=== PATIENT | female | born 1965 ===

== ENCOUNTER 2017-05-15 06:53 | Emergency (ER) | payer BC, OTHER ==
[2017-05-15 06:57] VITALS: TEMP 97.5
--- NOTE | 2017-05-15 07:04 | EDPHY ---
HPI/HX/ROS/PE/MDM Narrative: CHIEF COMPLAINT: Right lower back pain HPI: The patient is a 51 y/o female complaining of sharp right lower back pain, onset Saturday (3 days ago). The pain started on Saturday, but was mild and primarily in her abdomen. The pain then became more achy on Saturday. She saw her doctor on Saturday, 1 day ago, and they had no acute findings for her pain. They recommended she have blood work and abdominal imaging. The pain has since migrated towards her right low back. Denies fever, chills, diarrhea, constipation, history of similar symptoms, history of surgery or other pertinent symptoms. REVIEW OF SYSTEMS: Aside from elements discussed in the HPI, a comprehensive 10-point review of systems was reviewed and is negative. PMH: Denies SOCIAL HISTORY: Friend at bedside, lives in [place], works for [employer] PHYSICAL EXAM: General:Patient is alert, in no acute distress. ENT:Eyes are normal to inspection. ENT inspection normal. Neck: Normal inspection. Full range of motion. Respiratory:No respiratory distress. Breath sounds normal bilaterally. Cardiovascular: Regular rate and rhythm. Strong peripheral pulses. Normal cap refill. Abdomen:The abdomen is nontender to palpation. There are no peritoneal signs. There are normal bowel sounds. Back: Right-sided CVA tenderness to palpation. Normal to inspection. Skin: Normal color. No rash. Warm and dry. Extremities: Normal appearance. Full range of motion. Neuro: Oriented x3. Normal motor function. Normal sensory function. Portions of this note were transcribed by an ED scribe. I personally performed the history, physical exam, and medical decision making; and confirm the accuracy of the information in the transcribed note. ED Course: The patient is a 51 y/o female who presents with right-sided CVA tenderness, onset 3 days ago. The pain began in her right abdomen and has migrated to her right back. The pain has also increased in intensity since it began. 0730: Spoke with Dr. Cooper, radiologist, he reports the abdominopelvic CT is negative for acute findings. 0740: The patients nurse reports that she is still in significant pain after 15mg IV Toradol. 0.5mg IV Dilaudid administered. 0930: Spoke with Dr. Peter, radiologist, he reports the abdominal and pelvic/renal ultrasounds are normal. 1002: Reassessed patient and discussed imaging findings. I offered to admit her , but she refused and would like to go home. Return precautions provided; patient is comfortable with this plan. MDM: This patient presents with abdominal and flank pain, but surprisingly, her workup in the ED is normal. We performed an extensive series of tests in the ED , including CTAP, US of abdomen and pelvis, as well as negative labs and urinalysis. On re-evaluation, patient still has mild pain but feels better. Her vitals are normal. I had a discussion with her regarding options, and patient chooses to decline further testing here in the ED or admission to the hospital. We discussed strict return precautions. I see no signs of bowel obstruction, bowel perforation, appendicitis, kidney stone or diverticulitis. - Data Points Imaging Results: Imaging Impressions Abdomen/Pelvis CT 05/15/17 07:10 Impression: 1. Negative for nephrolithiasis or obstructive uropathy. 2. See above report for additional findings. The study was performed as an emergency on-call case and discussed by telephone with Dr. Quiroz at 0 735 hours. The final interpretation is concordant with the original communication. Attention: This CT examination is specifically designed to evaluate patients who are clinically suspected of having acute obstructive uropathy. This examination does not use radiographic contrast, and as such, provides only a limited evaluation of the abdomen, pelvis and retroperitoneum. If there is further clinical suspicion for pathological conditions other than obstructive uropathy, a complete CT evaluation of the abdomen and pelvis utilizing intravenous, oral, and rectal contrast should be considered. Abdomen Ultrasound 05/15/17 07:52 Impression: Normal abdominal ultrasound. Findings discussed with Kalyan Quiroz MD 05/15/2017 at 9:31. Pelvic/Renal Ultrasound 05/15/17 07:52 Impression: Normal pelvic ultrasound. Findings discussed with Kalyan Quiroz MD 05/15/2017 at 9:31. Imaging: Discussed imaging studies w/ call center operations manager Radiologist, I viewed and interpreted images myself Laboratory Results: Laboratory Results 05/15/17 07:00 05/15/17 07:00 05/15/17 05/15/17 05/15/17 07:00 07:00 07:00 WBC RBC Hgb Hct MCV MCH MCHC RDW Plt Count MPV Neut % (Auto) Lymph % (Auto) [place] % (Auto) Eos % (Auto) Baso % (Auto) Nucleat RBC Rel Count Absolute Neuts (auto) Absolute Lymphs (auto) Absolute Monos (auto) Absolute Eos (auto) Absolute Basos (auto) Absolute Nucleated RBC Immature Gran % Immature Gran # Sodium 138 mEq/L mEq/L (134-144) Potassium 4.5 mEq/L mEq/L (3.5-5.2) Chloride 105 mEq/L mEq/L (97-110) Carbon Dioxide 23 mEq/l mEq/l (22-31) Anion Gap 10 mEq/L mEq/L (8-16) BUN 9 mg/dL mg/dL (7-23) Creatinine 0.7 mg/dL mg/dL (0.6-1.0) Estimated GFR > 60 Glucose 94 mg/dL mg/dL (70-100) Calcium 9.3 mg/dL mg/dL (8.5-10.4) Beta HCG, Qual NEGATIVE Urine Color YELLOW Urine Appearance HAZY Urine pH 7.0 (5.0-7.5) Ur Specific [place] 1.015 (1.002-1.030) Urine Protein NEGATIVE (NEGATIVE) Urine Ketones NEGATIVE (NEGATIVE) Urine Blood NEGATIVE (NEGATIVE) Urine Nitrate NEGATIVE (NEGATIVE) Urine Bilirubin NEGATIVE (NEGATIVE) Urine Urobilinogen NEGATIVE EU EU (0.2-1.0) Ur Leukocyte Esterase NEGATIVE (NEGATIVE) Urine Glucose NEGATIVE (NEGATIVE) 05/15/17 07:00 WBC 7.74 10^3/uL 10^3/uL (3.80-9.50) RBC 5.04 10^6/uL 10^6/uL (4.18-5.33) Hgb 15.0 g/dL g/dL (12.6-16.3) Hct 43.9 % % (38.0-47.0) MCV 87.1 fL fL (81.5-99.8) MCH 29.8 pg pg (27.9-34.1) MCHC 34.2 g/dL g/dL (32.4-36.7) RDW 12.8 % % (11.5-15.2) Plt Count 303 10^3/uL 10^3/uL (150-400) MPV 9.2 fL fL (8.7-11.7) Neut % (Auto) 53.6 % % (39.3-74.2) Lymph % (Auto) 35.5 % % (15.0-45.0) [place] % (Auto) 6.5 % % (4.5-13.0) Eos % (Auto) 3.6 % % (0.6-7.6) Baso % (Auto) 0.5 % % (0.3-1.7) Nucleat RBC Rel Count 0.0 % % (0.0-0.2) Absolute Neuts (auto) 4.15 10^3/uL 10^3/uL (1.70-6.50) Absolute Lymphs (auto) 2.75 10^3/uL 10^3/uL (1.00-3.00) Absolute Monos (auto) 0.50 10^3/uL 10^3/uL (0.30-0.80) Absolute Eos (auto) 0.28 10^3/uL 10^3/uL (0.03-0.40) Absolute Basos (auto) 0.04 10^3/uL 10^3/uL (0.02-0.10) Absolute Nucleated RBC 0.00 10^3/uL 10^3/uL (0-0.01) Immature Gran % 0.3 % % (0.0-1.1) Immature Gran # 0.02 10^3/uL 10^3/uL (0.00-0.10) Sodium Potassium Chloride Carbon Dioxide Anion Gap BUN Creatinine Estimated GFR Glucose Calcium Beta HCG, Qual Urine Color Urine Appearance Urine pH Ur Specific [place] Urine Protein Urine Ketones Urine Blood Urine Nitrate Urine Bilirubin Urine Urobilinogen Ur Leukocyte Esterase Urine Glucose Medications Given: Discontinued Medications Hydromorphone HCl (Dilaudid) 0.5 mg IVP EDNOW ONE Stop: 05/15/17 07:44 Last Admin: 05/15/17 07:46 Dose: 0.5 mg Hydromorphone HCl (Dilaudid) 0.5 mg IVP EDNOW ONE Stop: 05/15/17 09:28 Last Admin: 05/15/17 09:30 Dose: 0.5 mg Ketorolac Tromethamine (Toradol) 15 mg IVP EDNOW ONE Stop: 05/15/17 07:11 Last Admin: 05/15/17 07:21 Dose: 15 mg General Time Seen by Provider: 05/15/17 07:00 Initial Vital Signs: Initial Vital Signs Temperature (C) 36.4 C 05/15/17 06:56 Heart Rate 77 05/15/17 06:56 Respiratory Rate 18 05/15/17 06:56 Blood Pressure 130/85 H 05/15/17 06:56 O2 Sat (%) 95 05/15/17 06:56 O2 Delivery Mode Room Air Allergies/Adverse Reactions: No Known Allergies Allergy (Unverified 05/15/17 06:57) Home Medications: Medication Instructions Recorded NK [No Known Home Meds] 05/15/17 Departure - Departure Disposition: Home, Routine, Self-Care Clinical Impression: Abdominal pain Qualifiers: Abdominal location: right lower quadrant Qualified Code(s): R10.31 - Right lower quadrant pain Condition: Good Instructions: Acute Abdominal Pain (ED), Abdominal Pain (ED) Additional Instructions: Follow-up with your primary doctor within 72 hours. Return to the Emergency Department for fever, chest pain, shortness of breath, vomiting, diarrhea, constipation, increasing pain or other worsening of condition. Referrals: Reji Boudreaux, [Primary Care Provider] - As per Instructions Report Scribed for: Kalyan Quiroz Report Scribed by: Bethany Mauro Date of Report: 05/15/17 Time of Report: 07:03
[2017-05-15] MEDS ORDERED: KETOROLAC 30 MG/1 ML SDV IVP ONE (07:10)
[2017-05-15] MEDS ORDERED: KETOROLAC 30 MG/1 ML SDV ONE (07:16)
[2017-05-15 07:17] LABS: % IMMATURE GRANULYOCYTES 0.3 % (0.0-1.1); ABSOLUTE IMMATURE GRANULOCYTES 0.02 10^3/uL (0.00-0.10); ADD DIFF? NO; ADD MORPH? NO; ADD SCAN? NO; ATYPICAL LYMPHOCYTE FLAG 0 (0-99); FRAGMENT RBC FLAG 0 (0-99); HEMATOCRIT 43.9 % (38.0-47.0); LEFT SHIFT FLG 0 (0-99); LIPEMIA HEMOLYSIS FLAG 90 (0-99); MEAN CELL HEMOGLOBIN 29.8 pg (27.9-34.1); MEAN CELL HEMOGLOBIN CONCENTR. 34.2 g/dL (32.4-36.7); MEAN CELL VOLUME 87.1 fL (81.5-99.8); MEAN PLATELET VOLUME 9.2 fL (8.7-11.7); PLATELET CLUMPS FLAG 0 (0-99); PLATELET COUNT 303 10^3/uL (150-400); RED BLOOD CELL COUNT 5.04 10^6/uL (4.18-5.33); RED CELL DISTRIBUTION WIDTH 12.8 % (11.5-15.2)
[2017-05-15 07:41] LABS: ANION GAP 10 mEq/L (8-16); CALCIUM 9.3 mg/dL (8.5-10.4); CARBON DIOXIDE 23 mEq/l (22-31); CHLORIDE 105 mEq/L (97-110); CREATININE 0.7 mg/dL (0.6-1.0); GLOMERULAR FILTRATION RATE > 60; GLUCOSE 94 mg/dL (70-100); POTASSIUM 4.5 mEq/L (3.5-5.2); SODIUM 138 mEq/L (134-144)
[2017-05-15] MEDS ORDERED: HYDROmorphONE/DILAUDID 1 MG/ML INJ IVP ONE ×2 (07:43→09:27)
[2017-05-15 07:44] LABS: COLOR YELLOW; LEUKOCYTE ESTERASE,URINE NEGATIVE (NEGATIVE); NITRITE,URINE NEGATIVE (NEGATIVE)
[2017-05-15 09:24] VITALS: PULSE 64
[2017-05-15 10:46] VITALS: BP 111/78; RESP 16; O2SAT 95
== END 2017-05-15 10:46 | disposition home or self-care (01) ==
DX: R10.31 Right lower quadrant pain (principal)
CPT/HCPCS: 96374; J1170; J1885

== ENCOUNTER 2017-06-13 10:56 | Emergency (ER) | payer OTHER ==
[2017-06-13 11:01] VITALS: RESP 18; O2SAT 97
[2017-06-13 11:43] LABS: PLATELET COUNT 249 10^3/uL (150-400)
[2017-06-13] MEDS ORDERED: KETOROLAC 15 MG/1 ML SDV IVP ONE ×2 (12:04)
--- NOTE | 2017-06-13 12:04 | EDPHY ---
H & P Time Seen by Provider: 06/13/17 11:36 HPI/ROS: CHIEF COMPLAINT: Right-sided back pain HISTORY OF PRESENT ILLNESS: 51-year-old female presents with right-sided back pain. 1 month ago, she developed right flank pain. She was seen in this emergency department and had a negative workup, including CT abdomen and pelvis , right upper quadrant ultrasound and urinalysis. That discomfort resolved. However the she then developed dysuria and urinary frequency. She was seen by her primary care physician on 06/07 and was diagnosed with a urinary tract infection. She was placed on an Macrobid, which caused hives. She was then placed on Bactrim based on urine culture results. Since then she continues to have urinary frequency. Over the past few days, she has also developed right lower back pain. The back pain increases with movement and position change. Not similar to prior right flank pain 1 month ago. No fever or vomiting. REVIEW OF SYSTEMS: Constitutional: No fever, no chills Eyes: No visual changes ENT: No sore throat Respiratory: No cough, no shortness of breath Cardiac: No chest pain Gastrointestinal: No nausea, no vomiting, no abdominal pain Genitourinary: No hematuria, no dysuria Skin: No rash Neurological: No headache, no numbness, no weakness Psychiatric: No depression Past Medical/Surgical History: Postmenopausal Social History: PCP: Dr. Boudreaux No recent alcohol Smoking Status: Former smoker Physical Exam: General Appearance: Alert, pleasant Eyes: Pupils equal and round, no conjunctival pallor or injection ENT, Mouth: Mucous membranes moist Neck: Normal inspection Respiratory: Lungs are clear to auscultation Cardiovascular: Regular rate and rhythm Gastrointestinal: Abdomen is soft and nontender Back: Tenderness over the right lumbar paraspinous musculature, no CVA tenderness, no midline tenderness Neurological: A&O, nonfocal exam Skin: Warm and dry, no rash Extremities: Nontender, no pedal edema Psychiatric: Mood and affect normal Constitutional: Initial Vital Signs Temperature (C) 36.3 C 06/13/17 10:57 Heart Rate 78 06/13/17 10:57 Respiratory Rate 18 06/13/17 10:57 Blood Pressure 117/81 H 06/13/17 10:57 O2 Sat (%) 97 06/13/17 10:57 O2 Delivery Mode Room Air Allergies/Adverse Reactions: nitrofurantoin [From Macrobid] Allergy (Verified 06/13/17 12:18) "some antibiotic" Allergy (Mild, Uncoded 06/13/17 10:58) Rash Home Medications: Medication Instructions Recorded NK [No Known Home Meds] 05/15/17 Medical Decision Making ED Course/Re-evaluation: This patient presents with musculoskeletal low back pain and persistent urinary symptoms. Old record review, including a recent CT scan. She had no nephrolithiasis on the prior CT scan. Repeat urinalysis ordered. Toradol 15 mg IV given for lumbar strain. Repeat urinalysis is normal. There is no evidence of pyelonephritis or kidney stone. She has low back pain secondary to lumbar strain. Instructions given. Differential Diagnosis: Differential diagnosis includes though not limited to kidney stone, pyelonephritis, cholecystitis. - Data Points Laboratory Results: Laboratory Results 06/13/17 11:30 06/13/17 11:30 06/13/17 06/13/17 06/13/17 11:45 11:30 11:30 WBC 6.46 10^3/uL 10^3/uL (3.80-9.50) RBC 4.86 10^6/uL 10^6/uL (4.18-5.33) Hgb 14.5 g/dL g/dL (12.6-16.3) Hct 42.4 % % (38.0-47.0) MCV 87.2 fL fL (81.5-99.8) MCH 29.8 pg pg (27.9-34.1) MCHC 34.2 g/dL g/dL (32.4-36.7) RDW 12.4 % % (11.5-15.2) Plt Count 249 10^3/uL 10^3/uL (150-400) MPV 8.9 fL fL (8.7-11.7) Neut % (Auto) 70.1 % % (39.3-74.2) Lymph % (Auto) 22.1 % % (15.0-45.0) [place] % (Auto) 5.7 % % (4.5-13.0) Eos % (Auto) 1.5 % % (0.6-7.6) Baso % (Auto) 0.3 % % (0.3-1.7) Nucleat RBC Rel Count 0.0 % % (0.0-0.2) Absolute Neuts (auto) 4.52 10^3/uL 10^3/uL (1.70-6.50) Absolute Lymphs (auto) 1.43 10^3/uL 10^3/uL (1.00-3.00) Absolute Monos (auto) 0.37 10^3/uL 10^3/uL (0.30-0.80) Absolute Eos (auto) 0.10 10^3/uL 10^3/uL (0.03-0.40) Absolute Basos (auto) 0.02 10^3/uL 10^3/uL (0.02-0.10) Absolute Nucleated RBC 0.00 10^3/uL 10^3/uL (0-0.01) Immature Gran % 0.3 % % (0.0-1.1) Immature Gran # 0.02 10^3/uL 10^3/uL (0.00-0.10) Sodium 141 mEq/L mEq/L (134-144) Potassium 4.0 mEq/L mEq/L (3.5-5.2) Chloride 105 mEq/L mEq/L (97-110) Carbon Dioxide 28 mEq/l mEq/l (22-31) Anion Gap 8 mEq/L mEq/L (8-16) BUN 7 mg/dL mg/dL (7-23) Creatinine 0.8 mg/dL mg/dL (0.6-1.0) Estimated GFR > 60 Glucose 84 mg/dL mg/dL (70-100) Calcium 9.1 mg/dL mg/dL (8.5-10.4) Total Bilirubin 0.4 mg/dL mg/dL (0.1-1.4) AST 23 IU/L IU/L (14-46) ALT 34 IU/L IU/L (9-52) Alkaline Phosphatase 70 IU/L IU/L (38-126) Total Protein 6.5 g/dL g/dL (6.3-8.2) Albumin 3.7 g/dL g/dL (3.5-5.0) Urine Color PALE YELLOW Urine Appearance CLEAR Urine pH 7.0 (5.0-7.5) Ur Specific [place] 1.005 (1.002-1.030) Urine Protein NEGATIVE (NEGATIVE) Urine Ketones NEGATIVE (NEGATIVE) Urine Blood NEGATIVE (NEGATIVE) Urine Nitrate NEGATIVE (NEGATIVE) Urine Bilirubin NEGATIVE (NEGATIVE) Urine Urobilinogen NEGATIVE EU EU (0.2-1.0) Ur Leukocyte Esterase NEGATIVE (NEGATIVE) Urine Glucose NEGATIVE (NEGATIVE) Medications Given: Discontinued Medications Ketorolac Tromethamine (Toradol) 15 mg IVP EDNOW ONE Stop: 06/13/17 12:05 Last Admin: 06/13/17 12:16 Dose: 15 mg Lidocaine (Lidoderm 5%) 1 ea TD EDNOW ONE Stop: 06/13/17 12:30 Last Admin: 06/13/17 12:45 Dose: 1 ea Departure - Departure Disposition: Home, Routine, Self-Care Clinical Impression: Low back strain Qualifiers: Encounter type: initial encounter Qualified Code(s): S39.012A - Strain of muscle, fascia and tendon of lower back, initial encounter Condition: Good Instructions: Low Back Strain (ED), Lower Back Exercises (ED) Additional Instructions: Ibuprofen 600 mg 3 times daily while the pain persists. Use the lidocaine patch while the pain persists. Your urinalysis is normal today. Continue antibiotics as prescribed. Referrals: Reji Boudreaux, DO [Primary Care Provider] - As per Instructions
[2017-06-13 12:17] VITALS: BP 116/73; PULSE 71; TEMP 97.7
[2017-06-13] MEDS ORDERED: LIDOCAINE 5% 1 EA PATCH TD ONE ×2 (12:29)
[2017-06-13] MEDS ORDERED: PATCH REMOVAL 1 EA PATCH TD SCH ×2 (21:00)
== END 2017-06-13 12:48 | disposition home or self-care (01) ==
DX: S39.012A Strain of muscle, fascia and tendon of lower back, initial encounter (principal); Z87.891 Personal history of nicotine dependence; X58.XXXA Exposure to other specified factors, initial encounter
CPT/HCPCS: 96374; J1885